=== PATIENT | female | born 1965 | race Caucasian/White ===

== ENCOUNTER 2017-05-01 18:51 | Emergency (ER) | payer OTHER ==
[~2017-05-01] VITALS: Ht 165.1 cm; Wt 74.6 kg
[~2017-05-01 18:51] MED LIST: ACID REDUCER75 MG PO; ALBUTEROL SULF8.5 GM IH; ALEVE220 MG PO; AMOXICILLIN875 MG PO; CATAPRES0.3 MG PO; CENTRUM COMPLE1 EACH PO; COLACE100 MG PO; DILAUDID2 MG PO; ENDOCET 5-3251 EACH PO; EXCEDRIN EXTRA1 EACH PO; EXCEDRIN1 TABLET PO; FLONASE16 G1 BOTH NARES; IBUPROFEN800 MG PO; KLONOPIN0.5 M1 PO; LAMICTAL200 MG PO; MAXALT10 MG PO; METHADONE HCL40 MG PO; METHADONE1 MG/1 ML PO; METHADONE10 MG PO; MOBIC15 MG PO; MOTRIN IB200 MG PO; MOTRIN800 MG PO; MUCUS RELIEF600 M1 PO; MULTI COMPLETE1 EACH PO; MULTIPLE VITAM1 EAC4 PO; NAPROSYN500 MG PO; NEURONTIN300 MG PO; NEURONTIN400 MG PO; NEURONTIN600 MG PO; NEXIUM40 MG PO; NICODERM CQ1 EACH TD; NITROFURANTOIN50 MG PO; NOHOMEMEDS; OMEPRAZOLE40 M1 PO; PAXIL30 MG PO; PAXIL40 MG PO; PRILOSEC40 MG PO; PROMETHAZINE HC25 M1 PO; PROMETHAZINE12.5 M1 PR; REGLAN10 MG PO; RELPAX40 MG PO; SUBOXONE 12 MG1 EACH SL; SUBOXONE 2 MG-1 EACH SL; SUBOXONE 8 MG-1 EAC2 SL; TESSALON PERLE100 MG PO; TOPAMAX100 MG PO; TOPAMAX25 MG PO; VENTOLIN HFA18 GM IH; ZOFRAN ODT4 MG PO; ZOFRAN4 MG PO
[2017-05-01 19:25] LABS: MCHC 33.1 G/DL (30.0-36.0); MCV 90.5 FL (83-99); PLATELET COUNT 203 K/uL (156-360); RBC DIS.WIDTH-CV 13.3 % (11.8-14.6); RBC DIS.WIDTH-SD 44.1 % (39-53); RED BLOOD COUNT 4.64 M/uL (3.80-5.20); WHITE BLOOD COUNT 8.1 K/uL (4.1-10.2)
[2017-05-01 19:32] LABS: CHLORIDE 105 mEq/L (99-109); POTASSIUM 3.9 mEq/L (3.7-5.4); SODIUM 139 mEq/L (136-147)
[2017-05-01 19:34] LABS: GLUCOSE 97 mg/dL (70-99)
[2017-05-01 19:36] LABS: ANION GAP 9 MEQ/L (2-14)
[2017-05-01 19:37] LABS: SERUM ETHYL ALCOHOL < 10 mg/dL
[2017-05-01 19:38] LABS: GFR ESTIMATE (CALCULATED) > 59 mL/min/
[2017-05-01 19:39] LABS: UREA NITROGEN (BUN) 20 mg/dL (9-23)
[2017-05-01] MEDS ORDERED: PAROXETINE HCL20 MG PO (21:24)
[2017-05-01] MEDS ORDERED: ERGOCALCIF50000 UNIT PO (21:25)
[2017-05-01] MEDS ORDERED: ATORVASTATIN CA20 MG PO (21:25)
[2017-05-01] MEDS ORDERED: METHADONE10 MG/1 M1 PO (21:27)
[2017-05-01 21:35] LABS: ADD MIUA? YES; BILIRUBIN NEGATIVE; BLOOD NEGATIVE; COLOR YELLOW ((YELLOW)); GLUCOSE (STRIP) NEGATIVE; KETONES NEGATIVE; LEUKOCYTES TRACE; NITRITE NEGATIVE; PROTEIN (STRIP) 30; SPECIFIC GRAVITY 1.026 (1.000-1.030)
[2017-05-01 21:43] LABS: BACTERIA NONE SEEN /HPF; EPITHELIAL CELLS RARE /HPF; HYALINE CASTS 0-5 /LPF; MUCUS TRACE /LPF; RED BLOOD CELLS 0-5 /HPF (0-5); UCUL ADDED? NO; WHITE BLOOD CELLS 0-5 /HPF (0-5)
[2017-05-01 21:59] LABS: AMPHETAMINE NEGATIVE (500 ng/mL); BARBITURATES NEGATIVE (200 ng/mL); BENZODIAZEPINES NEGATIVE (150 ng/mL); COCAINE NEGATIVE (150 ng/mL); METHADONE PRESUMPTIVE POSITIVE (200 ng/mL); METHAMPHETAMINE NEGATIVE (500 ng/mL); OPIATES (MORPHINE) NEGATIVE (100 ng/mL); OXYCODONE NEGATIVE (100 ng/mL); PHENCYCLIDINE NEGATIVE (25 ng/mL); PROPOXYPHENE NEGATIVE (300 ng/mL); THC CANNABINOIDS NEGATIVE (50 ng/mL); TRICYCLIC ANTIDEPRESSANTS NEGATIVE (300 ng/mL)
[2017-05-01 22:00] LABS: INTERNAL CONTROLS VALID? YES
[2017-05-01 22:39] VITALS: BP 114/80
== END 2017-05-01 22:40 | disposition home or self-care (01) ==
LOC: EME 18:51
PROVIDERS: Emergency Medicine
DX: R41.0 Disorientation, unspecified (principal); R51 Headache; R47.81 Slurred speech; R29.810 Facial weakness; R53.1 Weakness; R20.0 Anesthesia of skin; T40.3X5A Adverse effect of methadone, initial encounter; G89.29 Other chronic pain; M54.30 Sciatica, unspecified side; F11.20 Opioid dependence, uncomplicated; F41.9 Anxiety disorder, unspecified; F17.200 Nicotine dependence, unspecified, uncomplicated
CPT/HCPCS: 70450; 80048; 81003; 85027; 93005; 99281; 99285; G0480; J2270; J2310

== ENCOUNTER 2017-11-10 20:00 | Emergency (ER) | payer OTHER ==
[~2017-11-10] VITALS: Ht 162.6 cm; Wt 79.4 kg
[~2017-11-10 20:00] MED LIST changes: +ATORVASTATIN CA20 MG PO; +ERGOCALCIF50000 UNIT PO; +METHADONE10 MG/1 M1 PO; +PAROXETINE HCL20 MG PO
[2017-11-10 20:59] LABS: HEMATOCRIT 40.3 % (36.0-46.0); HEMOGLOBIN 13.5 G/DL (11.9-15.5); MCH 30.6 PG (29.0-34.0); MCHC 33.5 G/DL (30.0-36.0); MCV 91.4 FL (83-99); PLATELET COUNT 269 K/uL (156-360); RBC DIS.WIDTH-CV 13.8 % (11.8-14.6); RBC DIS.WIDTH-SD 46.3 % (39-53); RED BLOOD COUNT 4.41 M/uL (3.80-5.20); WHITE BLOOD COUNT 11.2 K/uL (4.1-10.2)
[2017-11-10 21:16] LABS: CHLORIDE 108 mEq/L (99-109); POTASSIUM 3.6 mEq/L (3.7-5.4); SODIUM 139 mEq/L (136-147)
[2017-11-10 21:18] LABS: GLUCOSE 89 mg/dL (70-99)
[2017-11-10 21:22] LABS: CREATININE 0.8 mg/dL (0.6-1.3); GFR ESTIMATE (CALCULATED) > 59 mL/min/
[2017-11-10 21:23] LABS: UREA NITROGEN (BUN) 12 mg/dL (9-23)
[2017-11-10 21:49] LABS: TROP-I INTERPRETATION NEGATIVE; TROPONIN-I < 0.01 ng/mL (0.0-0.30)
[2017-11-10 22:13] LABS: APPEARANCE CLEAR ((CLEAR)); BILIRUBIN NEGATIVE; BLOOD NEGATIVE; COLOR YELLOW ((YELLOW)); GLUCOSE (STRIP) NEGATIVE; KETONES NEGATIVE; LEUKOCYTES TRACE; NITRITE NEGATIVE; PROTEIN (STRIP) NEGATIVE; SPECIFIC GRAVITY 1.013 (1.000-1.030)
[2017-11-10 22:20] LABS: BACTERIA RARE /HPF; EPITHELIAL CELLS 1+ /HPF; MUCUS TRACE /LPF; RED BLOOD CELLS 0-5 /HPF (0-5); UCUL ADDED? NO; WHITE BLOOD CELLS 0-5 /HPF (0-5)
[2017-11-10 23:29] VITALS: BP 117/72
== END 2017-11-10 23:42 | disposition home or self-care (01) ==
LOC: EME → EDBD 20:00 → EME 20:00
PROVIDERS: Emergency Medicine
DX: M54.5 Low back pain (principal); G89.29 Other chronic pain; G43.909 Migraine, unspecified, not intractable, without status migrainosus; F41.9 Anxiety disorder, unspecified; F17.200 Nicotine dependence, unspecified, uncomplicated; Z90.710 Acquired absence of both cervix and uterus; Z88.8 Allergy status to other drugs, medicaments and biological substances
CPT/HCPCS: 71046; 80048; 81003; 83880; 84484; 85027; 93005; 99281; 99285; J1885